=== PATIENT | female | born 1980 | race Caucasian/White ===

== ENCOUNTER 2019-08-20 12:23 | Emergency (ER) | payer OTHER ==
[~2019-08-20] VITALS: Ht 165.1 cm; Wt 85.7 kg
[~2019-08-20 12:23] MED LIST: A/B OTIC15 ML; LOPERAMIDE2 MG PO; MOTRIN800 MG PO; NORCO1 TA2 PO; ZOFRAN8 MG PO
[2019-08-20 12:30] VITALS: BP 142/56; Ht 165.1 cm; Wt 85.7 kg
== END 2019-08-20 13:58 | disposition home or self-care (01) ==
LOC: ED 12:23
DX: L51.9 Erythema multiforme, unspecified (principal); Z90.89 Acquired absence of other organs
CPT/HCPCS: J1200; J2930